=== PATIENT | male | born 1965 | race Hispanic/Latino ===

== ENCOUNTER 2016-11-05 19:26 | Emergency (ER) | payer SELFPAY ==
[~2016-11-05] VITALS: Ht 165.1 cm; Wt 65.9 kg
[2016-11-05 19:28] VITALS: BP 178/108; PULSE 117; RESP 30; O2SAT 94
--- NOTE | 2016-11-05 19:37 | ED.REPORT ---
HPI-Dyspnea / Wheezing Date of Service Nov 05, 2016 ED Provider: Tejas Galvez MD A 50 year old male with no known history presents to the ED complaining of shortness of breath and wheezing. The pt has had a cough for one week. 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 The pt had been wearing a respiratory at the time. He admits to wheezing and anxiety but denies fever. He also denies any history of lung disease. Nursing Notes Stated Complaint: SOB Chief Complaint: Respiratory Distress Nursing Notes Reviewed: Yes Allergies: Coded Allergies: No Known Allergies (Unverified , 11/05/16) Scheduled Prednisone (PredniSONE) 20 Mg Tablet 60 MG PO DAILY General Time Seen by MD: 19:36 Chief Complaint Wheezing Hx Obtained From: Patient, Son Arrived By: Walk-in Sudden in Onset?: Yes Onset Occurred: 1 - 4 hours ago Symptom Duration: Since onset Recent Healthcare: No recent doctor visit, No recent hospitalization Similar Sx Previous: No Past Medical History Past Medical History none reported Past Surgical History none reported Smoking History Unknown if Ever Smoker Social History Alcohol Use: "Social" Other Social History: Good social support Ambulatory Status Independent Review of Systems Constitutional: Denies: Fever Respiratory: Reports: Non-productive cough, Shortness of breath, Wheezing Musculoskeletal: Denies: Back pain, Neck pain Skin: Denies Rash Complete sys rev & neg: except as marked. Psychiatric: Reports: Anxiety Physical Exam Initial Vital Signs Vital Signs (First) Date Time Temp Pulse Resp B/P Pulse Ox O2 Delivery O2 Flow Rate FiO2 11/05/16 19:28 36.2 117 30 178/108 94 Room Air 11/05/16 19:50 2 Initial VS: Reviewed General/Constitutional: Awake, Alert Neck: Atraumatic, Supple, Full range of motion Respiratory / Chest: Atraumatic, Breath sounds = bilat, No respiratory distress inspiratory and expiratory wheeze with good air movement Cardiovascular: Regular rhythm, Heart sounds NL, No gallop, No murmurs, No rubs Heart Rate / Rhythm: Positive: Tachycardia ENT: Atraumatic, Airway patent, Mucous membranes moist Abdomen: Atraumatic, Soft, Non-tender Back: Atraumatic, Full range of motion Lower Extremity / Pelvis / MS: Atraumatic, Full range of motion Skin: Atraumatic, Color NL, No rash, Warm, Dry Neurologic: Oriented X3, Speech NL, No motor deficits, No sensory deficits Head / Eyes: Atraumatic, Normocephalic, PERRL, EOMI Upper Extremity / MS: Atraumatic, Full range of motion Psychiatric: Affect NL, Mood NL Interpretation & Diagnostics Lab Results Interpretation Result Diagram: 11/05/16193711/05/161937 Test 11/05/16 19:38 White Blood Count 12.8th/mm3 (3.8-10.1) Red Blood Count 5.55mil/mm3 (4.40-5.80) Hemoglobin 16.6g/dL (13.8-17.2) Hematocrit 50.4% (41.0-50.0) Mean Corpuscular Volume 90.8fL (81-100) Mean Corpuscular Hemoglobin 29.9pg (27.0-35.0) Mean Corpuscular Hemoglobin Concent 32.9% (32.0-37.0) Red Cell Distribution Width 12.9% (12.3-15.4) Platelet Count 341bil/L (150-400) Neutrophils (%) (Auto) 70.3% (40-74) Lymphocytes (%) (Auto) 14.5% (14-46) Monocytes (%) (Auto) 5.4% (4-12) Eosinophils (%) (Auto) 9.1% (0-5) Basophils (%) (Auto) 0.5% (0-3) Sodium Level 140mEq/L (134-144) Potassium Level 4.0mEq/L (3.5-5.2) Chloride Level 99mEq/L (97-108) Carbon Dioxide Level 25mmol/L (18-29) Blood Urea Nitrogen 21mg/dL (6-24) Creatinine 0.79mg/dL (0.76-1.27) Estimat Glomerular Filtration Rate 111mL/min (>59) Glucose Level 155mg/dL (60-99) Calcium Level 9.6mg/dL (8.5-10.1) Magnesium Level 2.0mg/dL (1.6-2.6) Total Bilirubin 0.5mg/dL (0.0-1.2) Aspartate Amino Transf (AST/SGOT) 38U/L (0-50) Alanine Aminotransferase (ALT/SGPT) 34U/L (0-44) Alkaline Phosphatase 139U/L (25-150) Troponin T < 0.010ug/L (0.0-0.011) Pro-B-Type Natriuretic Peptide 10.67pg/mL (0-121) Total Protein 9.1g/dL (6.4-8.4) Albumin 4.9g/dL (3.4-5.0) Hold [place] Top Tube Received (Received) ECG Interpretation ECG Interpretation: sinus tachycardia with a rate of 111 Time: 19:39 Interpreted by: ED physician X-Ray Chest Interpretation Chest Xray Interpretation: IMPRESSION: No acute disease Dictated by: Marty Salas M.D. on 11/05/2016 at 20:19 Approved by: Marty Salas M.D. on 11/05/2016 at 20:19 Interpretation / Wet Read by: Interpret - Radiologist Re-Eval/Medical Decision Med Decision/Clinical Course 50-year-old male with acute bronchospasm, seems to be well related to recent respiratory infection. He is exposed to some dust at work, this may be a factor, do not believe I could definitively say that at this point. Doing a DuoNeb treatment and 3 nebulized albuterol treatments with good results. Prednisone 60 mg by mouth here in the department. He is much improved and ready for discharge. Has albuterol MDI and spacer training. Source of Hx: Family Re-Evaluation/Progress #1: Time of Eval: 20:32 Re-Evaluation/Progress Note: Pt rechecked, who is stable. Plan for additional breathing treatment is discussed. Re-Evaluation/Progress #2: Time of Eval: 21:07 Re-Evaluation/Progress Note: Pt rechecked, whose condition has improved. The plan for discharge is discussed. The pt understands and agrees with the plan. All questions are addressed at this time. Counseled Regarding: Diagnosis, Lab results, Need for follow-up, When/why to return to ED Discharge & Departure Impression: Primary Impression: Acute asthma exacerbation Asthma severity: mild intermittent Qualified Code: J45.21 - Mild intermittent asthma with (acute) exacerbation Disposition: Home Discharge Condition All VS Reviewed: Yes Condition: Stable Patient Instructions: Asthma (ED) Additional Instructions: Emergency Department evaluation included review, examination, ECG chest x-ray and labs. Treatment with medications for asthma was helpful. Breathing is now improved. Continue with albuterol 2 puffs every 4 hours as needed. Is on 60 mg a day 4 more days. Off work for 3 days due to illness. Emergency department for increasing shortness of breath. Call [facility] tomorrow to make a follow-up appointment. Referrals: Nicole Márquez MD (PCP) Scribe Attestation Portions of this note were transcribed by Shalini Castro I, Dr. Galvez personally performed the history, physical exam and medical decision-making; I reviewed and confirmed the accuracy of the information in the transcribed note. Signed by: Darrion Andujar, 11/05/16 and 21:10. copies to: Nicole Márquez MD, Donald L MD Nov 05, 2016 19:37 SHALINI CASTRO Nov 05, 2016 19:46
[2016-11-05] MEDS ORDERED: predniSONE 20 mg Tablet PO ONE (19:40)
[2016-11-05] MEDS ORDERED: Albuterol-Ipratropium 3 mL Inhalation Solution NEB ONE (19:40)
[2016-11-05] MEDS ORDERED: Albuterol 2.5 mg/3 mL Inhalation Solution NEB ONE ×2 (19:40→20:40)
[2016-11-05 19:50] VITALS: PULSE 108; RESP 2; O2SAT 99
[2016-11-05 19:55] LABS: BASOPHILS % (AUTO) 0.5 % (0-3); EOSINOPHILS % (AUTO) 9.1 % (0-5); MONOCYTES % (AUTO) 5.4 % (4-12); Mean Corpuscular Hemoglobin 29.9 pg (27.0-35.0); Mean Corpuscular Volume 90.8 fL (81-100); NEUTROPHILS % (AUTO) 70.3 % (40-74); Platelet Count 341 bil/L (150-400)
[2016-11-05 20:17] LABS: TROPONIN T < 0.010 ug/L (0.0-0.011)
--- NOTE | 2016-11-05 20:20 | DRSVH ---
PROCEDURE: X-RAY CHEST ONE VIEW, PORTABLE ([id number]) INDICATIONS: Shortness of breath TECHNIQUE: One view of the chest was acquired. COMPARISON: None. FINDINGS: Surgical changes and devices: None. Lungs and pleura: No pleural effusions or pneumothorax. Lungs are clear. Mediastinum: Mediastinal contours appear normal. Heart size is normal. Bones and chest wall: No suspicious bony lesions. Overlying soft tissues appear unremarkable. IMPRESSION: No acute disease Dictated by: Marty Salas M.D. on 11/05/2016 at 20:19 Approved by: Marty Salas M.D. on 11/05/2016 at 20:19
[2016-11-05] MEDS ORDERED: _Albuterol-HFA 60 Puff Inhaler INHALATION PRN (20:40)
[2016-11-05 20:44] VITALS: PULSE 107; RESP 15; O2SAT 100
[2016-11-05] MEDS ORDERED: PRE20 PO (21:14)
[2016-11-05 21:26] VITALS: BP 128/94; PULSE 102; RESP 18; O2SAT 95
== END 2016-11-05 21:27 | disposition home or self-care (01) ==
LOC: SED 19:26
DX: J45.21 Mild intermittent asthma with (acute) exacerbation (principal)
CPT/HCPCS: 36415; 71010; 80053; 83735; 83880; 84484; 85025; 87804; 93005; 94640; 94644; 99285; J7613; J7620